=== PATIENT | male | born 1965 | race Caucasian/White ===

== ENCOUNTER 2019-01-02 01:11 | Emergency (ER) | payer SELFPAY ==
[~2019-01-02] VITALS: Ht 182.9 cm; Wt 99.8 kg
--- NOTE | 2019-01-02 01:21 | NUR ---
ED Nurse Note: PT BROUGHT IN BY [employer] C/O MEDICAL CLEARANCE. PT PRESENTS WITH ABRASION TO LEFT POSTERIOR KNEE X3 DAYS. Pt is AO x 2 times, can't answer question well. On room air no distress. DREW seen Pt at bedside.
[2019-01-02 01:22] VITALS: BP 142/87
--- NOTE | 2019-01-02 01:31 | NUR ---
ED Nurse Note: Urine sample sent to lab.
[2019-01-02] MEDS ORDERED: BACITRACIN15 GM TOPIC (01:33)
--- NOTE | 2019-01-02 01:40 | NUR ---
ED Nurse Note: Clean wound, applied topical med, cover with dressing.
[2019-01-02] MEDS ORDERED: Bacitracin Oint UD TOPIC ONE (01:45)
[2019-01-02 01:49] VITALS: BP 142/87
--- NOTE | 2019-01-02 01:51 | NUR ---
ER DISCHARGE NOTE: Patient is cleared to be discharged per ERMD, pt is aox4, on room air, with stable vital signs. LASD was given dc and prescription instructions, officer was able to verbalize understanding, pt id band removed without complications. pt is able to ambulate with steady gait with officer. pt took all belongings.
--- NOTE | 2019-01-02 03:33 | Emergency Room Report ---
History of Present Illness General Chief Complaint: Medical Clearance Source: Patient Present Illness HPI 53-year-old male presents ED for evaluation. Patient is in police custody and is here for clearance. Per [employer] patient has an abrasion to his left knee. patient states he scraped his leg a few days ago. States his tetanus is up-to- date. Denies any pain. States there was some bleeding initially which has since resolved. Denies any fevers or chills. Denies any discharge. No other aggravating relieving factors. Denies any other associated symptoms Allergies: Coded Allergies: No Known Allergies (Unverified , 01/02/19) Patient History Past Medical History: none Past Surgical History: none Pertinent Family History: none Social History: Denies: smoking, alcohol use, drug use Immunizations: UTD Reviewed Nursing Documentation: PMH: Agreed; PSxH: Agreed Nursing Documentation-PMH Past Medical History: No Stated History Review of Systems All Other Systems: negative except mentioned in HPI Physical Exam Vital Signs Date Time Temp Pulse Resp B/P (MAP) Pulse Ox O2 Delivery O2 Flow Rate FiO2 01/02/19 01:13 97.7 87 14 157/83 (107) 98 Room Air Sp02 EP Interpretation: reviewed, normal General Appearance: no apparent distress, alert, GCS 15, non-toxic Head: normocephalic Eyes: bilateral eye normal inspection, bilateral eye PERRL ENT: normal ENT inspection Neck: normal inspection Respiratory: normal inspection Cardiovascular #1: normal inspection Gastrointestinal: normal inspection Rectal: deferred Genitourinary: no CVA tenderness Musculoskeletal: back normal, gait/station normal, normal range of motion, non- tender Neurologic: alert, oriented x3, responsive, motor strength/tone normal, sensory intact, speech normal Psychiatric: judgement/insight normal, memory normal, mood/affect normal, no suicidal/homicidal ideation Skin: abrasions - abrasion lateral to L knee. no active bleeding or discharge. no erythema/induration Lymphatic: normal inspection Medical Decision Making Diagnostic Impression: Primary Impression: Abrasion Additional Impression: Medical clearance for incarceration ER Course Hospital Course 53-year-old male presents to ED for half-way clearance. abrasion noted to L knee Clinical course Patient placed on stretcher. Handcuffs. After initial history, physical exam reveals a middle aged male in no acute distress. There is a healing abrasion noted to the left knee. Active bleeding or discharge. No erythema or swelling to the joint. No signs of active infection. wound Cleaned. Bacitracin dressing applied. Patient to be medically cleared for incarceration Diagnosis - medical clearance for incarceration, abrasion stable and discharged into police custody Last Vital Signs Date Time Temp Pulse Resp B/P (MAP) Pulse Ox O2 Delivery O2 Flow Rate FiO2 01/02/19 01:49 97.7 84 16 142/87 98 Room Air Status: improved Disposition: D/C TO LAW ENFORCEMENT IN CUST Condition: Stable Scripts Bacitracin (Bacitracin) 28.4 Gm Oint...g. 1 APPLIC TOPIC THREE TIMES A DAY, #28.4 GM Prov: Alex Rome MD 01/02/19 Referrals: NOT CHOSEN IPA/,REFERRING (PCP) Fernie Boss [facility] Departure Forms: [facility] Clearance Patient Instructions: Abrasion, [id number] Alex Rome MD Jan 02, 2019 03:33
== END 2019-01-02 01:54 | disposition home or self-care (01) ==
LOC: EMR 01:34
DX: Z02.89 Encounter for other administrative examinations (principal); S80.212A Abrasion, left knee, initial encounter; W22.8XXA Striking against or struck by other objects, initial encounter; Y93.9 Activity, unspecified; Y92.9 Unspecified place or not applicable
CPT/HCPCS: 99282